=== PATIENT | male | born 1970 ===

== ENCOUNTER 2024-10-31 08:10 | Outpatient (REF) | payer MEDICAID, SELFPAY ==
[2024-10-31 14:39] LABS: HCT 49.5 % (40.0-50.0); HGB 17.2 g/dL (13.5-17.5); MCHC 34.7 % (32.0-36.0); MCV 89 fL (80-95); MPV 9.3 fL (8.0-11.0); Platelet Count 291 10^3/uL (130-400); RBC 5.54 10^6/uL (4.36-5.78); RDW-SD 39.6 fL; WBC 5.96 10^3/uL (4.4-10.8)
[2024-10-31 14:57] LABS: ALT 40 U/L (16-63); AST 23 U/L (15-37); Albumin 3.9 g/dL (3.4-5.0); Alkaline Phosphatase 96 U/L (46-116); Anion Gap 8.2 mmol/L (3-11); BUN 13 mg/dL (7-18); Bilirubin, Total 1.2 mg/dL (0.2-1.0); CO2 28.8 mmol/L (21.0-32.0); CREATININE 1.1 mg/dL (0.70-1.30); Calcium 9.3 mg/dL (8.5-10.1); Calculated LDL 113 mg/dL (<100); Chloride 104 mmol/L (98-107); Cholesterol 218 mg/dL (<200); Estimated GFR 80.77 (mL/min/1.73m2); Glucose 113 mg/dL (74-106); HDL Cholesterol 61 mg/dL (>or=40); Potassium 4.1 mmol/L (3.5-5.1); Sodium 141 mmol/L (136-145); Total Protein 7.5 g/dL (6.4-8.2); Triglyceride 223 mg/dL (<150)
[2024-10-31 15:03] LABS: Hemoglobin A1C 5.1 % (<5.7)
== END 2024-10-31 08:11 | disposition home or self-care (01) ==
LOC: NCHCN 08:10
PROVIDERS: Visit Provider Physician Assistant
DX: F10.10 Alcohol abuse, uncomplicated (principal); Z13.220 Encounter for screening for lipoid disorders; Z13.1 Encounter for screening for diabetes mellitus
CPT/HCPCS: 80053; 80061; 85027; 83036